=== PATIENT | female | born 1985 | race Caucasian/White ===

== ENCOUNTER 2018-06-15 07:24 | Day surgery (SDC) | payer OTHER ==
[~2018-06-15 07:24] MED LIST: Buffered Lidocaine 1% SYRIN* 1 ML/SYRINGE INTRADERM ONE; Lactated Ringers 1000 ML Bag* 1,000 ML IV SCH
[2018-06-15] MEDS ORDERED: Buffered Lidocaine 1% SYRIN* 1 ML/SYRINGE INTRADERM ONE (08:19)
[2018-06-15] MEDS ORDERED: fentaNYL* 50 MCG/ML 2 ML VIAL (100 MCG VIAL) ONE ×2 (09:03→11:24)
[2018-06-15] MEDS ORDERED: Midazolam* 1 MG/ML 2 ML VIAL (2 MG) ONE ×2 (09:03→11:18)
[2018-06-15] MEDS ORDERED: EPINEPHRINE 1 MG/ML 1 ML VIAL ONE (09:24)
[2018-06-15] MEDS ORDERED: Lidocaine 4% TOPICAL* 50 ML TOP.SOLN ONE (09:24)
[2018-06-15] MEDS ORDERED: Methylene Blue 0.5 %* 50 MG/10 ML AMP IV ONE (09:24)
[2018-06-15] MEDS ORDERED: Oxymetazoline 0.05% NASAL SPR* 15 ML BTL ONE (09:24)
[2018-06-15] MEDS ORDERED: Sterile Water for Inj* 10 ML ONE (09:41)
[2018-06-15] MEDS ORDERED: Famotidine IV* 10 MG/ML 2 ML (20 mg) ONE (09:48)
[2018-06-15] MEDS ORDERED: Propofol* 10 MG/ML 20 ML BTL ONE (09:52)
[2018-06-15] MEDS ORDERED: Ondansetron INJ* 2 MG/ML VIAL ONE (09:52)
[2018-06-15] MEDS ORDERED: Dexamethasone IV* 4 MG/ML 1 ML (4 MG) ONE ×2 (09:52→10:00)
[2018-06-15] MEDS ORDERED: Lidocaine 2% PF * 5 ML VIAL ONE (09:52)
[2018-06-15] MEDS ORDERED: Metoprolol Tartrate IV* 1 MG/ML 5 ML VIAL ONE (10:27)
[2018-06-15] MEDS ORDERED: HYDROcodone/ACETAMIN 5-325 MG* 1 TAB PO PRN (10:34)
[2018-06-15] MEDS ORDERED: Naloxone* 0.4 MG/ML 1 ML VIAL IV PRN (10:34)
[2018-06-15] MEDS ORDERED: DiMENhydriNATE IV* 50 MG/ML VIAL IV PUSH PRN (10:34)
[2018-06-15] MEDS ORDERED: diPHENhydraMINE IV* 50 MG/ML 1 ml VIAL (BENADRYL) IV PRN (10:34)
[2018-06-15] MEDS ORDERED: Levalbuterol 1.25MG/0.5ML NEB INH PRN (10:34)
[2018-06-15] MEDS ORDERED: PROCHLORPERAZINE INJ 5 MG/ML 2 ML VIAL IV PRN (10:34)
[2018-06-15] MEDS ORDERED: Acetaminophen TAB* 325 MG PO PRN (10:34)
[2018-06-15] MEDS ORDERED: Ondansetron INJ* 2 MG/ML VIAL IV PRN (10:34)
[2018-06-15] MEDS: fentaNYL* 50 MCG/ML 2 ML VIAL (100 MCG VIAL) IV PRN ×4 (11:26→11:42)
[2018-06-15] MEDS ORDERED: Levalbuterol 1.25MG/0.5ML NEB ONE (11:39)
[2018-06-15] MEDS ORDERED: Acetaminophen TAB* 325 MG ONE (12:13)
[2018-06-15 12:16] VITALS: BP 132/80
[2018-06-15] MEDS ORDERED: Ondansetron ODT TAB* 4 MG ONE (12:53)
--- NOTE | 2018-06-15 21:38 | OP ---
DATE OF OPERATION: 06/15/18 - [facility] DATE OF : 81 SURGEON: Vivek Aguilar MD PRE-OP DIAGNOSIS: Laryngomalacia POST-OP DIAGNOSIS: Laryngomalacia. OPERATIVE PROCEDURE: Microlaryngoscopy with CO2 laser, supraglottoplasty on the left side for left-sided laryngomalacia COMPLICATIONS: None. DISPOSITION: Good. SPECIMEN: None. BLOOD LOSS: Minimal. DESCRIPTION OF PROCEDURE: A laser tube was used. Laser-safe technique was used and a tooth guard was placed on the upper teeth during the surgery. The patient was taken to the operating room, placed on the supine position on the operating table. General anesthesia induced, she was orotracheally intubated with laser-safe endotracheal tube. What we noticed during intubation using the GlideScope is that the left aryepiglottic fold and cuneiform cartilage was causing obstruction with inspiration. This is the area I concentrated on with the laser. The laryngoscope was inserted and was suspended from the suspension system. The microscope was brought in using the CO2 laser. On a setting of 4, I ablated the cuneiform cartilage and aryepiglottic fold where the laryngomalacia was occurring. Anesthesia with 4% lidocaine and Afrin was used. The patient tolerated this well, no complications. Extubated uneventfully and transferred to the recovery room in stable condition. [id number]/[facility] #: [id number] MTDD
== END 2018-06-15 13:17 | disposition home or self-care (01) ==
LOC: OR 07:24
PROVIDERS: ATTEND Otolaryngology
DX: J38.6 Stenosis of larynx (principal); J38.01 Paralysis of vocal cords and larynx, unilateral; Q31.5 Congenital laryngomalacia; J45.909 Unspecified asthma, uncomplicated; F32.9 Major depressive disorder, single episode, unspecified
CPT/HCPCS: 81025; 94660; A9270-GY; J1100; J2250; J2405; J2704; J3010; J3490

== ENCOUNTER → 2018-10-12 07:58 | Day surgery (SDC) | payer OTHER ==
[~2018-10-12 07:58] MED LIST changes: +Acetaminophen TAB* 325 MG PO PRN; +Dexamethasone IV* 4 MG/ML 1 ML (4 MG) ONE; +Dexmedetomidine* 200 MCG/2 ML 2 ML VIAL ONE; +DiMENhydriNATE IV* 50 MG/ML VIAL IV PUSH PRN; +EPHEDrine (Pressors)* 50 MG/ML VIAL ONE; +KETAMINE HCL* 50 MG/ML 10 ML VIAL ONE; +Lidocaine 1% INJ* 10 MG/ML 30 ML SDV ONE; +Lidocaine 2% JELLY* 6 ML JELLY TOPICAL ONE; +Lidocaine 4% TOPICAL* 50 ML TOP.SOLN ONE; +Mepivacaine 2% MPF (20 MG/ML)* 20 ML MPF ONE; +Midazolam* 1 MG/ML 2 ML VIAL (2 MG) ONE; +Naloxone* 0.4 MG/ML 1 ML VIAL IV PRN; +Oxymetazoline 0.05% NASAL SPR* 15 ML BTL ONE; +Propofol* 10 MG/ML 20 ML BTL ONE; +Tetracaine 0.5% OPTH.SOL 4 ML* 1 DROP BTL ONE; +Tetracaine 1%* 2 ML AMP INJ ONE; +fentaNYL* 50 MCG/ML 2 ML VIAL (100 MCG VIAL) IV PRN; +fentaNYL* 50 MCG/ML 2 ML VIAL (100 MCG VIAL) ONE; +oxyCODONE TAB* 5 MG TAB PO PRN
--- NOTE | 2018-10-12 13:34 | OP ---
OPERATIVE REPORT: DATE OF OPERATION: 10/12/18 DATE OF : 81 SURGEON: Ronnie Aguilar MD. PRE-OP DIAGNOSIS: Laryngomalacia. POST-OP DIAGNOSIS: Laryngomalacia. OPERATIVE PROCEDURE: Nasal laryngoscopy with CO2 laser supraglottoplasty on the left side under loca l with MAC anesthesia with regional block. COMPLICATIONS: None. DISPOSITION: Good. SPECIMEN: None. BLOOD LOSS: None. DESCRIPTION OF PROCEDURE: The patient was taken to the operating room and in a sitting position, she was initially nebulized with 4% lidocaine and then Anesthesia performed a superior laryngeal nerve b lock on the left side. Her nose was topicalized with Afrin and 4% lidocaine and then 4% lidocaine ge l was used for the nasal laryngoscope. This was inserted through the right side and what was happeni ng was her left aryepiglottic fold was infolding into her airway. We used the CO2 laser fiber at sup er poles power setting of 6 after further topicalizing her larynx with 4% lidocaine and 1% tetracaine . I was able to ablate this area of the aryepiglottic fold and probably some of the cuneiform and co rniculate cartilage that had been left from her previous surgery so I got better visualization of the airway. With deep inspiration, things seemed to open as opposed to collapse as they did previously. The patient tolerated this well, no complications, transferred to the recovery room in stable condi tion. [id number]/[facility] #: [id number]
[2018-10-12 17:00] VITALS: BP 93/56
== END | disposition home or self-care (01) ==
LOC: OR 07:58
PROVIDERS: ATTEND Otolaryngology
DX: Q31.5 Congenital laryngomalacia (principal); J45.909 Unspecified asthma, uncomplicated; J38.6 Stenosis of larynx; K21.9 Gastro-esophageal reflux disease without esophagitis; M54.9 Dorsalgia, unspecified
CPT/HCPCS: A9270-GY; J0670; J1100; J2250; J2704; J3010

== ENCOUNTER 2020-09-24 09:15 | Inpatient (IN) ==
[2020-09-24] MEDS ORDERED: NS 0.9% 1000 ml BAG 1,000 ML IV ONE (10:08)
[2020-09-24] MEDS ORDERED: Morphine 4 MG/ML VIAL (1 ml) IV ONE ×3 (10:08→13:18)
[2020-09-24] MEDS ORDERED: Lidocaine 1% w EPI 1:100,000 MDV 20 ML VIAL INJ ONE (10:13)
[2020-09-24] MEDS ORDERED: Lidocaine 1% w EPI 1:100,000 MDV 20 ML VIAL ONE (10:17)
[2020-09-24] MEDS: Ondansetron 4 mg VIAL 2 MG/ML 2 ml VIAL IV ONE ×2 (10:26→21:38)
[2020-09-24 10:45] LABS: ABS Lymphocytes 0.8 10^3/ul (1.0-4.8); ABS Monocytes 0.4 10^3/ul (0-0.8); ABS Neutrophils 6.8 10^3/ul (1.5-7.7); Eosinophil % 0.1 %; Hematocrit 40 % (35-47); Hemoglobin 13.3 g/dL (12.0-16.0); Lymphocyte % 10.1 %; Mean Corpuscular HGB Conc 34 g/dL (31-36); Mean Corpuscular Hemoglobin 30 pg (27-31); Mean Corpuscular Volume 89 fL (80-97); Mean Platelet Volume 8.8 fL (7.4-10.4); Platelet Count 212 10^3/uL (150-450); Red Blood Count 4.48 10^6 /uL (3.70-4.87); Red Cell Distribution Width 13 % (10-15); White Blood Count 8.1 10^3/uL (3.5-10.8)
[2020-09-24 10:55] LABS: INR 1.01 (0.86-1.15)
[2020-09-24 11:01] LABS: Albumin 3.8 g/dL (3.2-5.2); Albumin/Globulin Ratio 1.4 (1-3); C Reactive Protein 6.33 mg/L (<8.01); Calcium 8.6 mg/dL (8.6-10.3); EGFR African American 94.9 (>60); EGFR Non-African American 78.4 (>60); Globulin 2.7 g/dL (2-4); Potassium 3.7 mmol/L (3.5-5.0); Total Bilirubin 0.4 mg/dL (0.2-1.0); Total Protein 6.5 g/dL (6.4-8.9)
[2020-09-24] MEDS ORDERED: Ondansetron 4 mg VIAL 2 MG/ML 2 ml VIAL IV ONE (11:48)
[2020-09-24] MEDS ORDERED: Ondansetron 4 mg VIAL 2 MG/ML 2 ml VIAL ONE (11:49)
[2020-09-24 12:14] LABS: Body Fluid Source Cerebral Spinal
[2020-09-24 12:52] LABS: Body Fluid Appearance Clear; Body Fluid Color Colorless; CSF Tube # 4
[2020-09-24 13:14] LABS: Body Fluid WBC 420 /mcL
[2020-09-24 13:17] LABS: Body Fluid Mono 11 %; Body Fluid Total Cells Counted 200
[2020-09-24] MEDS ORDERED: Acyclovir IV 500 MG/10 ML 100 ML VIAL (500 MG) IVPB SCH (14:00)
[2020-09-24] MEDS ORDERED: Ondansetron ODT 4 mg TAB 4 MG TAB SL PRN (15:38)
[2020-09-24] MEDS: Acyclovir IV 500 MG in NS 0.9% 100 ml BAG 100 ML IVPB SCH ×3 (15:50→23:14)
[2020-09-24] MEDS ORDERED: Gadoteridol (CONTRAST) 279.3 MG/ML 10 ML IV ONE (18:51)
[2020-09-24] MEDS: Enoxaparin 40 MG/0.4 ML SYR SUBCUT SCH (19:41)
[2020-09-25] MEDS: Acyclovir IV 500 MG in NS 0.9% 100 ml BAG 100 ML IVPB SCH ×3 (05:43→22:38)
[2020-09-25 07:23] LABS: ABS Eosinophils 0.1 10^3/ul (0-0.6); ABS Lymphocytes 1.3 10^3/ul (1.0-4.8); ABS Monocytes 0.4 10^3/ul (0-0.8); Eosinophil % 1.1 %; Hematocrit 36 % (35-47); Hemoglobin 12.3 g/dL (12.0-16.0); Lymphocyte % 26.4 %; Mean Corpuscular HGB Conc 34 g/dL (31-36); Mean Corpuscular Hemoglobin 31 pg (27-31); Mean Corpuscular Volume 89 fL (80-97); Mean Platelet Volume 9.3 fL (7.4-10.4); Platelet Count 179 10^3/uL (150-450); Red Blood Count 4.04 10^6 /uL (3.70-4.87); Red Cell Distribution Width 13 % (10-15); White Blood Count 4.8 10^3/uL (3.5-10.8)
[2020-09-25 07:33] LABS: EGFR African American 99.1 (>60); EGFR Non-African American 81.9 (>60); Potassium 3.6 mmol/L (3.5-5.0)
[2020-09-25 12:37] LABS: HIV 4th Generation Nonreactive (Nonreactive)
[2020-09-25 13:39] LABS: Chlamydia trachomatis NAA Negative (Negative); Neisseria gonorrhoeae (GC) NAA Negative (Negative)
[2020-09-25 14:59] LABS: CSF VDRL Negative (Negative)
[2020-09-25] MEDS: Enoxaparin 40 MG/0.4 ML SYR SUBCUT SCH (16:59)
[2020-09-25] MEDS: Polyethylene Glycol 3350 17 GM PACKET PO SCH (17:00)
[2020-09-25 20:55] LABS: HSV 1 PCR, CSF Negative (Negative); HSV 2 PCR, CSF Positive (Negative)
[2020-09-26] MEDS: Acyclovir IV 500 MG in NS 0.9% 100 ml BAG 100 ML IVPB SCH (05:03)
[2020-09-26] MEDS: Polyethylene Glycol 3350 17 GM PACKET PO SCH (07:51)
[2020-09-26 07:54] LABS: Calcium 8.2 mg/dL (8.6-10.3); EGFR African American 97.7 (>60); EGFR Non-African American 80.7 (>60); Potassium 3.6 mmol/L (3.5-5.0)
[2020-09-26] MEDS ORDERED: Lidocaine 5% OINT TUBE TOPICAL PRN (10:11)
[2020-09-26] MEDS ORDERED: Magnesium Hydroxide LIQ 30 ML UDC PO PRN (10:13)
[2020-09-26 12:05] VITALS: BP 147/89
== END 2020-09-26 12:45 | disposition home or self-care (01) | DRG 76 ==
LOC: ED 09:15 → MED 18:48 → SUATTDRO 18:48
PROVIDERS: ADMIT Hospitalist; ATTEND Internal Medicine